=== PATIENT | male | born 1955 | race Hispanic/Latino ===

== ENCOUNTER 2022-10-11 07:14 | Emergency (ER) | payer MEDICARE ==
--- OUTSIDE RECORDS SUMMARY | 2022-10-11 07:21 | XMS REPORT | Continuity of Care Document ---
:1955 Author Organization [facility] Address [address] [place] [address] [address]. Lopez [address] [place] [address] Care Team Providers Name Role Phone Armando_Rinku Attending Clinician Unavailable Christie Roberts Attending Clinician Sade Admitting Clinician Unavailable Payers Payer Name Policy Type Policy Number Effective Date Expiration Date S bobby [facility] 2021 (MEDICARE 00:00:00 REPLACEMENT HMO) Problems This patient has no known problems. Allergies, Adverse Reactions, Alerts This patient has no known allergies or adverse reactions. Medications This patient has no known medications. Procedures This patient has no known procedures. Encounters Start End Encounter Admission Attending Care Care Encounter Source Date/Time Date/Time Type Type Clinicians Facility Department ID 2021-11-16 Outpatient [facility] [id number] Common 12:17:33 [id number] [facility] 2022-10-11 2022-10-11 [place] [facility] [id number] [facility] 00:00:00 00:00:00 [id number] [facility] 2022-07-11 2022-07-11 [place] Soriano [id number] [facility] [id number] Devoted 18:00:00 19:30:00 Armando [id number] [facility] [id number] 2022-05-05 2022-05-05 [place] [facility] [place] [id number] [facility]oted 03:22:00 03:22:00 [id number] [facility] 2021-10-26 2021-10-26 [facility] [id number] Devoted 12:00:00 12:00:00 [id number] [facility] Results This patient has no known results.
[2022-10-11] MEDS ORDERED: AMLODIPINE 5 MG TAB ONE (08:11)
[2022-10-11 08:18] LABS: Absolute Lymphocytes (CBC) 3.4 K/uL (0.7-4.9); Hematocrit 34.6 % (39.6-49.0); Lymphocytes % 29.8 % (15.3-44.8); MCV 90.4 fL (80-100); MPV 10.1 fL (7.6-11.3); RBC Red Blood Cell Count 3.83 M/uL (4.33-5.43)
[2022-10-11 08:34] LABS: Albumin 3.7 g/dL (3.4-5.0); Bilirubin Total 0.3 mg/dL (0.2-1.0); Potassium 3.5 mmol/L (3.5-5.1); Protein, Total 7.2 g/dL (6.4-8.2); Troponin High Sensitivity 24.1 pg/mL (<58.9)
--- NOTE | 2022-10-11 08:46 | ER ---
Nurse's Notes [facility] Name: Santosh Mckenna Age: 67 yrs Sex: Male : 1955 Arrival Date: 10/11/2022 Time: 07:21 Bed 16 Private MD: Rome Hollingsworth Diagnosis: Essential (primary) hypertension Presentation: 10/11 07:31 Chief complaint: Patient states: BP has been high for one week, Dr. Hollingsworth added losartan iw 50 mg daily and it's still high, was told to come to ER if his BP did not improve, has been 190-200 systolic X 1 week, normally takes metoprolol 25 daily. Coronavirus screen: At this time, the client does not indicate any symptoms associated with coronavirus-19. Ebola Screen: Patient negative for fever greater than or equal to 101.5 degrees Fahrenheit, and additional compatible Ebola Virus Disease symptoms Patient denies exposure to infectious person. Patient denies travel to an Ebola-affected area in the 21 days before illness onset. No symptoms or risks identified at this time. Initial Sepsis Screen: Does the patient meet any 2 criteria? No. Patient's initial sepsis screen is negative. Does the patient have a suspected source of infection? No. Patient's initial sepsis screen is negative. Risk Assessment: Do you want to hurt yourself or someone else? Patient reports no desire to harm self or others. Onset of symptoms was October 11, 2022. 07:31 Method Of Arrival: Ambulatory iw 07:31 Acuity: PRADEEP 3 iw Triage Assessment: 07:29 General: Appears in no apparent distress. comfortable, Behavior is calm, cooperative, bp appropriate for age. Pain: Complains of pain in head. EENT: No deficits noted. Neuro: No deficits noted. Cardiovascular: Rhythm is sinus rhythm. Cardiovascular: Denies chest pain. Respiratory: No deficits noted. Denies shortness of breath. GI: No signs and/or symptoms were reported involving the gastrointestinal system. : No signs and/or symptoms were reported regarding the genitourinary system. Derm: No deficits noted. Musculoskeletal: No deficits noted. Historical: - Allergies: 07:33 No Known Allergies; iw - Home Meds: 07:33 metformin 500 mg Oral tab 1 tab 2 times per day [Active]; tamsulosin 0.4 mg oral cap 1 iw cap once daily [Active]; atorvastatin 40 mg oral tab 1 tab once daily [Active]; glimepiride 2 mg Oral tab 1 tab once daily [Active]; metoprolol tartrate 25 mg Oral tab 1 tab once daily [Active]; losartan 50 mg oral tab 1 tab once daily [Active]; - PMHx: 07:33 Diabetes mellitus; Hypertensive disorder; iw - PSHx: 07:33 spinal fusion; iw - Immunization history:: Adult Immunizations. - Social history:: Smoking status: Patient reports the use of cigarette tobacco products, denies chronic smoking, but will smoke occasionally. - Family history:: not pertinent. Screenin:30 [facility] ED Fall Risk Assessment (Adult) History of falling in the last 3 months, bp including since admission No falls in past 3 months (0 pts). Humpty Dumpty Scale Fall Assessment Tool (age< 18yrs) Age 13 years and above (1 pt). Abuse screen: Denies threats or abuse. Denies injuries from another. Nutritional screening: No deficits noted. Tuberculosis screening: No symptoms or risk factors identified. Fall Risk No fall in past 12 months (0 pts). Assessment: 07:33 General: SEE TRIAGE NOTE. bp 08:12 Reassessment: No changes from previously documented assessment. Patient and/or family bp updated on plan of care and expected duration. Pain level reassessed. 09:10 Reassessment: PT DC HOME AMBULATORY. bp Vital Signs: 07:33 BP 197 / 103; Pulse 57; Resp 16; Temp 97.9; Pulse Ox 98% on R/A; Weight 113.4 kg; bp Height 5 ft. 10 in. (177.80 cm); 07:37 BP 190 / 86; Pulse 56; Resp 16; Pulse Ox 98% ; bp 08:00 BP 178 / 82; Pulse 61; Resp 16; Pulse Ox 98% ; bp 09:00 BP 180 / 88; Pulse 58; Resp 16; Pulse Ox 99% ; bp 07:33 Body Mass Index 35.87 (113.40 kg, 177.80 cm) bp ED Course: 07:21 Patient arrived in ED. rg4 07:21 Rome Hollingsworth MD is Private Physician. rg4 07:24 Asher Otero, NELLI is Primary Nurse. bp 07:24 Adriel Anderson MD is Attending Physician. rt 07:29 Arm band placed on. bp 07:30 Patient has correct armband on for positive identification. Bed in low position. Call bp light in reach. Side rails up X2. Adult w/ patient. 07:33 Triage completed. iw 08:05 Inserted saline lock: 20 gauge in left forearm, using aseptic technique. Blood bp collected. 08:45 Rome Hollingsworth MD is Referral Physician. rt 09:11 No provider procedures requiring assistance completed. IV discontinued, intact, bp bleeding controlled, No redness/swelling at site. Pressure dressing applied. Administered Medications: 08:00 Drug: amLODIPine 5 mg Route: PO; bp 09:11 Follow up: Response: No adverse reaction; Marked relief of symptoms bp Medication: 07:33 VIS not applicable for this client. bp Outcome: 08:45 Discharge ordered by MD. rt 09:11 Discharged to home ambulatory, with family. bp 09:11 Condition: stable 09:11 Discharge instructions given to patient, Instructed on discharge instructions, follow up and referral plans. medication usage, Demonstrated understanding of instructions, follow-up care, medications, Prescriptions given X 1. 09:11 Patient left the ED. bp Signatures: Alina Roberts, RN RN iw France Owens rg4 Ashre Otero RN RN bp Adriel Anderson MD MD rt Corrections: (The following items were deleted from the chart) 08:12 07:33 BP 197 / 103; Resp 16bpm; Pulse Ox 98% RA; 113.4 kg; Height 5 ft. 10 in.; BMI: bp 35.8; iw
--- NOTE | 2022-10-11 08:46 | EDPHYS ---
Physician Documentation [facility] Name: Santosh Mckenna Age: 67 yrs Sex: Male : 1955 Arrival Date: 10/11/2022 Time: 07:21 Bed 16 Private MD: Rome Hollingsworth ED Physician Adriel Anderson HPI: 10/11 07:44 This 67 yrs old Male presents to ER via Ambulatory with complaints of High rt Blood Pressure. 07:44 Onset: The symptoms/episode began/occurred yesterday. Modifying factors:. Associated rt signs and symptoms: Pertinent positives: headache, Pertinent negatives: chest pain, dizziness, dyspnea, nausea. Severity of symptoms: At its worst the blood pressure was moderate. Patient presents to the ED with reported hypertension. The patient recently had his blood pressure medication changed from losartan 25 mg twice a day to 50 mg twice a day. He states that the blood pressure was hovering at about 200 yesterday. Was told to come to the ED for further evaluation. The patient reports a mild left-sided headache, nonradiating. Denies other acute complaints at this time, symptoms are moderate severity, no other aggravating or alleviating factors.. Historical: - Allergies: 07:33 No Known Allergies; iw - Home Meds: 07:33 metformin 500 mg Oral tab 1 tab 2 times per day [Active]; tamsulosin 0.4 mg oral cap 1 iw cap once daily [Active]; atorvastatin 40 mg oral tab 1 tab once daily [Active]; glimepiride 2 mg Oral tab 1 tab once daily [Active]; metoprolol tartrate 25 mg Oral tab 1 tab once daily [Active]; losartan 50 mg oral tab 1 tab once daily [Active]; - PMHx: 07:33 Diabetes mellitus; Hypertensive disorder; iw - PSHx: 07:33 spinal fusion; iw - Immunization history:: Adult Immunizations. - Social history:: Smoking status: Patient reports the use of cigarette tobacco products, denies chronic smoking, but will smoke occasionally. - Family history:: not pertinent. ROS: 07:44 Constitutional: Negative for fever, chills, and weight loss, Eyes: Negative for injury, rt pain, redness, and discharge, ENT: Negative for injury, pain, and discharge, Neck: Negative for injury, pain, and swelling, Cardiovascular: Negative for chest pain, palpitations, and edema, Respiratory: Negative for shortness of breath, cough, wheezing, and pleuritic chest pain, Abdomen/GI: Negative for abdominal pain, nausea, vomiting, diarrhea, and constipation, Back: Negative for injury and pain, MS/Extremity: Negative for injury and deformity, Skin: Negative for injury, rash, and discoloration, Psych: Negative for depression, anxiety, suicide ideation, homicidal ideation, and hallucinations. 07:44 Neuro: Positive for headache, Negative for dizziness. Exam: 07:44 Constitutional: This is a well developed, well nourished patient who is awake, alert, rt and in no acute distress. Head/Face: Normocephalic, atraumatic. Eyes: Pupils equal round and reactive to light, extra-ocular motions intact. Lids and lashes normal. Conjunctiva and sclera are non-icteric and not injected. Cornea within normal limits. Periorbital areas with no swelling, redness, or edema. ENT: Nares patent. No nasal discharge, no septal abnormalities noted. Tympanic membranes are normal and external auditory canals are clear. Oropharynx with no redness, swelling, or masses, exudates, or evidence of obstruction, uvula midline. Mucous membranes moist. Neck: Trachea midline, no thyromegaly or masses palpated, and no cervical lymphadenopathy. Supple, full range of motion without nuchal rigidity, or vertebral point tenderness. No Meningismus. Chest/axilla: Normal chest wall appearance and motion. Nontender with no deformity. No lesions are appreciated. Cardiovascular: Regular rate and rhythm with a normal S1 and S2. No gallops, murmurs, or rubs. Normal PMI, no JVD. No pulse deficits. Respiratory: Lungs have equal breath sounds bilaterally, clear to auscultation and percussion. No rales, rhonchi or wheezes noted. No increased work of breathing, no retractions or nasal flaring. Abdomen/GI: Soft, non-tender, with normal bowel sounds. No distension or tympany. No guarding or rebound. No evidence of tenderness throughout. Skin: Warm, dry with normal turgor. Normal color with no rashes, no lesions, and no evidence of cellulitis. MS/ Extremity: Pulses equal, no cyanosis. Neurovascular intact. Full, normal range of motion. Neuro: Awake and alert, GCS 15, oriented to person, place, time, and situation. Cranial nerves II-XII grossly intact. Motor strength 5/5 in all extremities. Sensory grossly intact. Cerebellar exam normal. Normal gait. Psych: Awake, alert, with orientation to person, place and time. Behavior, mood, and affect are within normal limits. 08:17 ECG was reviewed by the Attending Physician. rt Vital Signs: 07:33 BP 197 / 103; Pulse 57; Resp 16; Temp 97.9; Pulse Ox 98% on R/A; Weight 113.4 kg; bp Height 5 ft. 10 in. (177.80 cm); 07:37 BP 190 / 86; Pulse 56; Resp 16; Pulse Ox 98% ; bp 08:00 BP 178 / 82; Pulse 61; Resp 16; Pulse Ox 98% ; bp 09:00 BP 180 / 88; Pulse 58; Resp 16; Pulse Ox 99% ; bp 07:33 Body Mass Index 35.87 (113.40 kg, 177.80 cm) bp MDM: 07:38 Patient medically screened. rt 08:49 Differential diagnosis: hypertensive crisis, intracerebral hemorrhage, ACS,CHF. Data rt reviewed: vital signs, nurses notes, lab test result(s), EKG. ED course: Presents to the ED with hypertension. He has a very mild headache at this time. EKG, labs are unremarkable. Of a very low suspicion for intracranial process, therefore, CT scan is not indicated. No evidence of endorgan dysfunction. Blood pressure is improving with medications in the ED. Is stable for outpatient care, patient instructed follow-up with primary care for further management.. 10/11 07:44 Order name: CBC with Diff; Complete Time: 08:35 rt 12 07:44 Order name: Troponin High Sensitivity; Complete Time: 08:35 rt 12 07:44 Order name: EKG; Complete Time: 07:44 rt 10/11 07:44 Order name: EKG - Nurse/Tech; Complete Time: 08:12 rt 12 07:44 Order name: CMP; Complete Time: 08:35 rt EC:17 Rate is 57 beats/min. Rhythm is regular, Sinus bradycardia with No ectopy. QRS [place] is rt Normal. [place] interval is normal. QRS interval is normal. QT interval is normal. No Q waves. T waves are Normal. No ST changes noted. Interpreted by me. Administered Medications: 08:00 Drug: amLODIPine 5 mg Route: PO; bp 09:11 Follow up: Response: No adverse reaction; Marked relief of symptoms bp Disposition Summary: 10/11/22 08:45 Discharge Ordered Location: Home rt Problem: an acute exacerbation rt Symptoms: have improved rt Condition: Stable rt Diagnosis - Essential (primary) hypertension rt Followup: rt - With: Rome Hollingsworth MD - When: 10 - 14 days - Reason: Discharge Instructions: - Discharge Summary Sheet rt - Hypertension, Adult rt Forms: - Medication Reconciliation Form rt - Thank You Letter rt - Antibiotic Education rt - Prescription Opioid Use rt Prescriptions: - Norvasc 5 mg Oral Tablet - take 1 tablet by ORAL route once daily; 30 tablet; Refills: 0, Product rt Selection Permitted Signatures: Dispatcher [employer] Alina Wasserman RN RN iw Peltier, Brian, RN RN Adriel Griffin MD MD rt
[2022-10-11 09:34] VITALS: TEMP 97.9
[2022-10-11 09:38] VITALS: BP 180/88; O2SAT 99
== END 2022-10-11 09:11 | disposition home or self-care (01) ==
LOC: ER 07:14
DX: I10 Essential (primary) hypertension (principal); E11.9 Type 2 diabetes mellitus without complications; F17.210 Nicotine dependence, cigarettes, uncomplicated
CPT/HCPCS: 36415; 80053; 84484; 85025; 93005

== ENCOUNTER 2022-10-12 18:15 | Emergency (ER) | payer MEDICARE ==
--- OUTSIDE RECORDS SUMMARY | 2022-10-12 18:18 | XMS REPORT | Continuity of Care Document ---
:1955 Author Organization [facility] Address [address] [place] [address] [address]. [address] [place] [address] Care Team Providers Name Role Phone Armando_Rinku Attending Clinician Unavailable Christie Roberts Attending Clinician Sade Admitting Clinician Unavailable Payers Payer Name Policy Type Policy Number Effective Date Expiration Date S bobby [facility] 2021 (MEDICARE 00:00:00 REPLACEMENT HMO) Problems This patient has no known problems. Allergies, Adverse Reactions, Alerts This patient has no known allergies or adverse reactions. Medications This patient has no known medications. Procedures This patient has no known procedures. Encounters Start End Encounter Admission Attending Care Care Encounter Source Date/Time Date/Time Type Type Clinicians Facility Department ID 2021-11-16 Outpatient [facility] [id number] Common 12:17:[id number] [facility] 2022-10-11 2022-10-11 Outpatient Sade [facility] [id number] Devoted 00:00:00 00:00:00 [id number] Med[facility] l Group 2022-07-11 2022-07-11 [place] Soriano [id number]. [facility] [id number] Devoted 18:00:00 19:30:00 Armando [id number] [facility] [id number] 2022-05-05 2022-05-05 Outpatient [facility] [id number] Devoted 03:22:00 03:22:00 [id number] Med[facility] 2021-10-26 2021-10-26 [facility] [id number] Devoted 12:00:00 12:00:00 [id number] [facility] Results This patient has no known results.
[2022-10-12] MEDS ORDERED: ACETAMINOPHEN 500 MG TAB ONE (19:41)
--- NOTE | 2022-10-12 20:36 | RAD REPORT ---
EXAM DESCRIPTION: CT - Head Brain Wo Cont - 10/12/2022 8:21 pm CLINICAL HISTORY: headache, HTN COMPARISON: No comparisons TECHNIQUE: All CT scans are performed using dose optimization technique as appropriate and may inclu de automated exposure control or mA/KV adjustment according to patient size. FINDINGS: No intracranial hemorrhage, hydrocephalus or extra-axial fluid collection.No areas of brai n edema or evidence of midline shift. The paranasal sinuses and mastoids are clear. The calvarium is intact. IMPRESSION: No acute intracranial abnormality.
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
--- NOTE | 2022-10-12 20:46 | ER ---
Nurse's Notes [facility] Name: Santosh Mckenna Age: 67 yrs Sex: Male : 1955 Arrival Date: 10/12/2022 Time: 18:18 Bed 15 Private MD: Diagnosis: Cephalgia;Essential (primary) hypertension Presentation: 10/12 18:22 Chief complaint: Headache x 2 days. Also reports home BP 214/102. Coronavirus screen: hb At this time, the client does not indicate any symptoms associated with coronavirus-19. Ebola Screen: No symptoms or risks identified at this time. Initial Sepsis Screen: Does the patient meet any 2 criteria? No. Patient's initial sepsis screen is negative. Does the patient have a suspected source of infection? No. Patient's initial sepsis screen is negative. Risk Assessment: Do you want to hurt yourself or someone else? Patient reports no desire to harm self or others. Onset of symptoms was October 11, 2022. 18:22 Method Of Arrival: Ambulatory hb 18:22 Acuity: PRADEEP 3 hb Historical: - Allergies: 18:23 No Known Allergies; hb - PMHx: 18:23 diabetes mellitus; Hypertensive disorder; hb - PSHx: 18:23 Spinal Fusion; hb - Immunization history:: Adult Immunizations unknown. - Social history:: Smoking status: unknown. Screenin:[address] [facility] ED Fall Risk Assessment (Adult) Score/Fall Risk Level 0 - 2 = Low Risk. Abuse as6 screen: Denies threats or abuse. Denies injuries from another. Nutritional screening: No deficits noted. Tuberculosis screening: No symptoms or risk factors identified. Assessment: 19:46 General: Appears in no apparent distress. Behavior is calm, cooperative. Pain: as6 Complains of pain in head. Pain: Quality of pain is described as aching. Neuro: Reports headache. Cardiovascular: Capillary refill < 3 seconds Patient's skin is warm and dry. Respiratory: Respiratory effort is even, unlabored. Vital Signs: 18:22 BP 165 / 105; Pulse 95; Resp 16; Temp 98.4; Pulse Ox 100% on R/A; Weight 113.4 kg; hb Height 5 ft. 10 in. (177.80 cm); Pain 8/10; 20:55 BP 148 / 99; Pulse 89; Resp 17 S; Pulse Ox 99% on R/A; as6 18:22 Body Mass Index 35.87 (113.40 kg, 177.80 cm) ED Course: 18:18 Patient arrived in ED. rg4 18:23 Triage completed. hb 18:24 Arm band placed on. hb 19:06 Yanira Garcia MD is Attending Physician. sd2 19:19 Eddie Bourne, RN is Primary Nurse. as6 19:47 Bed in low position. Call light in reach. pt states he is more comfortable sitting in as6 chair. 20:23 CT Head Brain wo Cont In Process Unspecified. EDMS 20:54 No provider procedures requiring assistance completed. Patient did not have IV access as6 during this emergency room visit. Administered Medications: 19:46 Drug: Tylenol 1000 mg Route: PO; as6 20:55 Follow up: Response: No adverse reaction as6 Medication: 19:48 VIS not applicable for this client. as6 Outcome: 20:45 Discharge ordered by . sd2 20:54 Discharged to home ambulatory, with significant other. as6 20:54 Condition: stable 20:54 Discharge instructions given to patient, significant other, Instructed on discharge instructions, follow up and referral plans. Demonstrated understanding of instructions, follow-up care. 20:55 Patient left the ED. as6 Signatures: Dispatcher [employer] EDMS Regina Moyer, NELLI AIKEN France Owens rg4 Eddie Bourne, NELLI RN as6 Yanira Garcia MD MD sd2
[2022-10-12 21:01] VITALS: TEMP 98.4
[2022-10-12 21:02] VITALS: BP 148/99; O2SAT 99
== END 2022-10-12 20:55 | disposition home or self-care (01) ==
LOC: ER 18:15
DX: R51.9 Headache, unspecified (principal); I10 Essential (primary) hypertension; E11.9 Type 2 diabetes mellitus without complications
CPT/HCPCS: 70450; 99283

== ENCOUNTER 2022-11-15 06:53 | Day surgery (SDC) | payer MEDICARE ==
[2022-11-15] MEDS ORDERED: NA CHLORIDE 0.9% 1,000 ML ONE (07:15)
[2022-11-15] MEDS ORDERED: propofoL 200 MG/20 ML VIAL IV ONE (08:02)
[2022-11-15] MEDS ORDERED: LIDOCAINE 1% MPF 5 ML VIAL ONE (08:02)
--- NOTE | 2022-11-15 08:35 | ENDO RPT ---
[address], [address] COLONOSCOPY PROCEDURE REPORT EXAM DATE: 11/15/2022 PATIENT NAME: Santosh Mckenna MR #: [id number] BIRTHDATE: 1955 ATTENDING: Luis Menezes DR STATUS: outpatient BODY FORMER: Vannesa Tamayo RN and Earl Padilla [facility] INDICATIONS: The patient is a 67 yr old Male here for a colonoscopy due to colon cancer screening PROCEDURE PERFORMED: Colonoscopy with biopsy - cold polypectomy MEDICATIONS: Per Anesthesia. ESTIMATED BLOOD LOSS: None CONSENT: The patient understands the risks and benefits of the procedure and understands that these risks include, but are not limited to: sedation, allergic reaction, infection, perforation and/or bleeding. Alternative means of evaluation and treatment include, among others: physical exam, x-rays, and/or surgical intervention. The patient elects to proceed with this endoscopic procedure. DESCRIPTION OF PROCEDURE: During intra-op preparation period all mechanical medical equipment was checked for proper function. Hand hygiene and appropriate measures for infection prevention was taken. Procedure, possible complications, alternatives including, but not limited to possibility of bleeding, perforation, tear, infection, sepsis, need for surgery, need for blood transfusion, were explained to the patient. After the risks, benefits and alternatives of the procedure were thoroughly explained, Informed consent was verified, confirmed and timeout was successfully executed by the treatment team. The patient was placed in the left lateral position. A digital rectal exam was performed and revealed internal hemorrhoids. After appropriate level of anesthesia, the scope was passed. The EC-[id number] ([id number]) endoscope was introduced through the anus and advanced to the cecum, which was identified by both the appendix and ileocecal valve. The quality of the prep was fair. The instrument was then slowly withdrawn as the colon was fully examined. Scope withdrawal time was 10 minutes. COLON FINDINGS: A smooth sessile polyp ranging between 3-5mm in size was found at the splenic flexure. A polypectomy was performed with cold forceps. The resection was complete, the polyp tissue was completely retrieved and sent to histology. Small internal hemorrhoids were found. The colon mucosa was otherwise normal. Retroflexed views revealed no abnormalities. The scope was then completely withdrawn from the patient and the procedure terminated. ADVERSE EVENTS: There were no complications. IMPRESSIONS: 1. Sessile polyp ranging between 3-5mm in size was found at the splenic flexure; polypectomy was performed with cold forceps 2. Small internal hemorrhoids 3. The colon mucosa was otherwise normal RECOMMENDATIONS: 1. avoid NSAIDS for 2 weeks 2. await biopsy results 3. fiber rich diet 4. follow-up: office 2 week(s) 5. Monitor for any evidence of rectal bleeding. 6. hemorrhoidal hygiene 7. yearly hemoquant 8. yearly hemoccult starting in 4 years RECALL: for Colonoscopy, pending biopsy results. Luis Menezes DR eSigned: Luis Menezes DR 11/15/2022 8:35 AM cc: CPT CODES: ICD9 CODES: PATIENT NAME: Santosh Mckenna MR#: [id number]
[2022-11-15 09:47] VITALS: TEMP 97.4
[2022-11-15 09:49] VITALS: BP 115/66
[2022-11-15 09:50] VITALS: O2SAT 100
[2022-11-15] MEDS ORDERED: HYDROCODONE/APAP 10/325 TAB ONE (10:07)
== END 2022-11-15 09:18 | disposition home or self-care (01) ==
LOC: OR 06:53
PROVIDERS: ATTEND Surgery
PROC: 0DBL8ZX Excision of Transverse Colon, Via Natural or Artificial Opening Endoscopic, Diagnostic (ICD-10-PCS; principal; 2022-11-15 08:00)
DX: Z12.11 Encounter for screening for malignant neoplasm of colon (principal); D12.3 Benign neoplasm of transverse colon; K64.8 Other hemorrhoids
CPT/HCPCS: 82947; 88305; 45380; J2704; J2001; J7030

== ENCOUNTER 2024-03-14 12:57 | Emergency (ER) | payer MEDICARE ==
--- OUTSIDE RECORDS SUMMARY | 2024-03-14 13:00 | XMS REPORT | Continuity of Care Document ---
Author Name Unknown Address [address] [facility] [address] [place], [place] [address] [place] [address] th[address] [facility] [address] [place] [address] [address] Prov[address] Care Ct Scan Technologist Name Role Phone Flora Medina Attending Clinician [phone] Deepa hWitley Attending Clinician [phone] Shaina Attending Clinician Unavailable Christie Roberts Attending Clinician Sade Attending Clinician Unavailable Shaina Admitting Clinician Unavailable Sade Admitting Clinician Unavailable Payers Payer Name Policy Type Policy Number Effective Date Expirati on Date Source [facility] (MEDICARE REPLACEMENT O) UR 2021 00:00:00 Problems Condition Name Condition Details Condition Category Status Onset Date Resolution Date Last Treatment Date Treating Clinician Comments Source [id number] Nocturia Problem Commo n [facility] [id number] 101 Benign prostatic hyperplasi a with lower urinary tract symptoms Problem [facility] [id number] Primary osteoarthr itis of left knee Problem [facility] [id number] OAB (overactiv e bladder) Problem [facility] Social History Social Habit Start Date Stop Date Quantity Comments Source History of Tobacco Use [facility] Sex Assigned At [facility] Smoking Status Start Date Stop Date Source Never Smoker [facility] Medications Ordered Medication Name Filled Medication Name Start Date Stop Date Current Medication? Ordering Clinician Indication Dosage Frequency Signature (SIG) Comments Components Source Finasteride 5 MG Finasteride 5 MG 03-03 00:00: 00 No 1{table t} QD Finasterid e 5 MG Solifenacin Succinate 5 MG Solifenacin Succinate 5 MG 03-03 00:00: 00 No 1{table t} QD Solifenaci n Succinate 5 MG Metoprolol Succinate 25 MG Metoprolol Succinate 25 MG No 1{capsu le} QD Metoprolol Succinate 25 MG Glimepiride 4 MG Glimepiride 4 MG No 1{table t_with_ breakfa st_or_t he_firs t_main_ meal_of _the_da y} QD Glimepirid e 4 MG amLODIPine Besylate 10 MG amLODIPine Besylate 10 MG No 1{table t} QD amLODIPine Besylate 10 MG Jardiance 25 MG Jardiance 25 MG No 1{table t} QD Jardiance 25 MG metFORMIN HCl 500 MG metFORMIN HCl 500 MG No 1{table t_with_ a_meal} QD metFORMIN HCl 500 MG Tamsulosin HCl 0.4 MG Tamsulosin HCl 0.4 MG No 1{capsu le} QD Tamsulosin HCl 0.4 MG Losartan Potassium 100 MG Losartan Potassium 100 MG No 1{table t} QD Losartan Potassium 100 MG Vital Signs Vital Name Observation Time Observation Value Comments S ource height 2024-03-03 15:45:00 70 [in_i] Commo n [facility] weight 2024-03-03 15:45:00 252.2 [lb_av] Co mmon [facility] temperature 2024-03-03 15:45:00 98.1 [degF] Com mon [facility] bmi 2024-03-03 15:45:00 36.18 kg/m2 Comm on [facility] oximetry 2024-03-03 15:45:00 93 % Commo n [facility] blood pressure systolic 2024-03-03 15:45:00 155 mm[Hg] Common Spiri [facility] blood pressure diastolic 2024-03-03 15:45:00 74 mm[Hg] Common Spiri t - [facility] Procedures Procedure Date / Time Performed Performing Clinicia n Source PVR 2024-03-03 00:00:00 Common S pirit [facility] Encounters Start Date/Time End Date/Time Encounter Type Admission Type Attending [facility] Care Facility Care Department Encounter ID Source 2024-03-04 15:17:00 Outpatient [facility] [id number] [facility] 2024-03-03 15:11:00 [facility] [id number] [facility] 2024-01-10 16:57:00 Outpatient [facility] [id number] [facility] 2021-11-16 12:17:33 [facility] [id number] [facility] 2024-03-03 00:00:00 2024-03-03 00:00:00 OFFICE VISIT NEW PT LEVEL 4 [facility] [id number] [facility] 2024-01-09 14:00:00 2024-01-09 15:00:00 Annual D2Me Flora Medina [id number] [facility] 2023-04-30 19:30:00 2023-04-30 20:30:00 CAV Deepa Whitley [id number]. [id number] GGY [facility] 2023-04-19 00:00:00 2023-04-19 00:00:00 Outpatient Canales_M [facility] [id number] [facility] 2022-10-18 22:00:00 2022-10-18 23:00:00 CAV Revisit: Gap Closure & Clinical Check-in Christie Armando [id number] [facility] 2022-10-18 00:00:00 2022-10-18 00:00:00 Outpatient Williams_V [facility] [id number] [facility] 2022-10-11 00:00:00 2022-10-11 00:00:00 Outpatient Williams_V [facility] [id number] [facility] 2022-07-11 18:00:00 2022-07-11 19:30:00 CAV Christie Roberts [id number]. [id number] [facility] 2022-05-05 03:22:00 2022-05-05 03:22:00 [facility] [id number] [facility] 2021-10-26 12:00:00 2021-10-26 12:00:00 [facility] [id number] [facility]
[2024-03-14 14:10] LABS: Sqamous Epithelial <5 /HPF (None Seen); Urine Bacteria None Seen /HPF (<20); Urine Bilirubin NEGATIVE (Negative); Urine Blood Negative (Negative); Urine Clarity Clear (Clear); Urine Color Colorless (Yellow); Urine Culture Reflex Order NOT NEEDED; Urine Glucose 4+ (Over) (Negative); Urine Ketones NEGATIVE (Negative); Urine Micro Reflex YN NO BILL MICROSCOPIC; Urine Mucus Slight /HPF (None Seen); Urine Nitrite NEGATIVE (Negative); Urine Protein NEGATIVE (Negative); Urine RBC <5 /HPF (None Seen); Urine Urobilinogen Normal (Normal); Urine WBC <5 /HPF (<5)
--- NOTE | 2024-03-14 14:34 | EDPHYS ---
Physician Documentation [facility] Name: Santosh Mckenna Age: 68 yrs Sex: Male : 1955 Arrival Date: 03/14/2024 Time: 12:57 Bed 16 Private MD: ED Physician Ezra Bradford HPI: 03/14 13:20 This 68 yrs old Male presents to ER via Ambulatory with complaints of Urinary cp Problem. 13:20 The patient presents with urinary symptoms, retention, voiding small amounts. Onset: cp The symptoms/episode began/occurred yesterday, and became worse this morning. Associated signs and symptoms: Pertinent positives: lower abdomen pressure, Pertinent negatives: constipation, diarrhea, dysuria, fever, vomiting, worse back pain. Severity of symptoms: in the emergency department the symptoms are unchanged, despite home interventions. Historical: - Allergies: 13:07 No Known Allergies; ko1 - PMHx: 13:07 diabetes mellitus; Hypertensive disorder; ko1 - PSHx: 13:07 Spinal Fusion; ko1 - Immunization history:: Adult Immunizations up to date. - Infectious Disease History:: Denies. - Social history:: Smoking status: Patient denies any tobacco usage or history of. ROS: 13:25 : Positive for small amounts, difficulty urinating, Negative for burning with cp urination, penile discharge, testicular pain 13:25 Eyes: Negative for injury, pain, redness, and discharge, cp 13:25 Constitutional: Negative for body aches, chills, fever, poor PO intake, 13:25 Respiratory: Negative for cough, shortness of breath, wheezing, 13:25 Abdomen/GI: Positive for of the right lower quadrant and left lower quadrant, abdominal pressure, Negative for nausea, vomiting, diarrhea, constipation, 13:25 Back: Negative for radiated pain, 13:25 Neuro: Negative for altered mental status, dizziness, headache, weakness, 13:25 All other systems are negative, Exam: 13:30 Constitutional: The patient appears in no acute distress, alert, awake, non-toxic, well cp developed, well nourished, 13:30 Head/Face: Normocephalic, atraumatic. cp 13:30 Eyes: Periorbital structures: appear normal, Conjunctiva: normal, no exudate, no injection, Sclera: no appreciated abnormality, Lids and lashes: appear normal, bilaterally, 13:30 ENT: External ear(s): are unremarkable, Nose: is normal, Mouth: Lips: moist, Oral mucosa: pink and intact, moist, Posterior pharynx: is normal, airway is patent, no erythema, no exudate, 13:30 Chest/axilla: Inspection: normal, 13:30 Cardiovascular: Rate: normal, 13:30 Respiratory: the patient does not display signs of respiratory distress, Respirations: normal, no use of accessory muscles, no retractions, labored breathing, is not present, Breath sounds: are clear throughout, no decreased breath sounds, no stridor, no wheezing, 13:30 Abdomen/GI: Inspection: abdomen appears normal, Bowel sounds: active, all quadrants, Palpation: soft, in all quadrants, mild abdominal tenderness, in the right lower quadrant and left lower quadrant, rebound tenderness, is not appreciated, involuntary guarding, is not appreciated, 13:30 Back: CVA tenderness, is absent, 13:30 Neuro: Orientation: to person, place \T\ time. Mentation: is normal, Motor: moves all fours, strength is normal, Sensation: is normal, Vital Signs: 13:05 BP 151 / 76; Pulse 67; Resp 16; Temp 98.2(O); Pulse Ox 98% on R/A; ko1 MDM: 13:14 Patient medically screened. cp 13:30 Differential diagnosis: nonspecific abdominal pain, UTI, urinary retention, cp prostatitis, urethritis. 14:33 Data reviewed: vital signs, nurses notes, lab test result(s), and as a result, I will cp discharge patient. 14:33 Care significantly affected by the following chronic conditions: Diabetes, cp Hypertension. Counseling: I had a detailed discussion with the patient and/or guardian regarding the historical points, exam findings, and any diagnostic results supporting the discharge/admit diagnosis, lab results, the need for outpatient follow up, for definitive care, a urologist, to return to the emergency department if symptoms worsen or persist or if there are any questions or concerns that arise at home. Response to treatment: the patient's symptoms have markedly improved after treatment, and as a result, I will discharge patient. 03/14 13:20 Order name: Urinalysis W/Microscopic; Complete Time: 14:23 cp 03/14 14:23 Interpretation: Reviewed. cp 03/14 13:20 Order name: Bladder Scanner; Complete Time: 14:07 cp 03/14 13:20 Order name: Ruiz; Complete Time: 14:16 cp 03/14 14:33 Order name: Leg Bag; Complete Time: 15:07 cp Administered Medications: No medications were administered Disposition: 17:06 I was immediately available on-site in the Emergency Department for consultation in the ms3 care of the patient. Disposition Summary: 03/14/24 14:34 Discharge Ordered Notes: Location: Home cp Problem: new cp Symptoms: have improved cp Condition: Stable cp Diagnosis - Retention of urine, unspecified cp Followup: cp - With: Keenan Reyna MD - When: 1 week - Reason: Recheck today's complaints Discharge Instructions: - Discharge Summary Sheet cp - Acute Urinary Retention, Male cp Forms: - Medication Reconciliation Form cp - Antibiotic Education cp - Prescription Opioid Use cp - Patient Portal Instructions cp - Leadership Thank You Letter cp Prescriptions: - cefpodoxime 200 mg Oral tablet - take 1 tablet ORAL route every 12 hours with food; 14 tablet; Refills: 0, cp Product Selection Permitted Signatures: Dispatcher [employer] EDMS Zoltan Joseph PA PA cp Sims, Marcus, DO DO ms3 Crystal Barrios, RN RN ko1
--- NOTE | 2024-03-14 14:34 | ER ---
Nurse's Notes [facility] Name: Santosh Mckenna Age: 68 yrs Sex: Male : 1955 Arrival Date: 03/14/2024 Time: 12:57 Bed 16 Private MD: Diagnosis: Retention of urine, unspecified Presentation: 03/14 13:05 Chief complaint: Patient states: feels like im not emptying my bladder all the way. I ko1 pee a little bit every 10 minutes or so, have a hx of prostate problems. Coronavirus screen: At this time, the client does not indicate any symptoms associated with coronavirus-19. Ebola Screen: No symptoms or risks identified at this time. Initial Sepsis Screen: Does the patient meet any 2 criteria? No. Patient's initial sepsis screen is negative. Does the patient have a suspected source of infection? No. Patient's initial sepsis screen is negative. Risk Assessment: Do you want to hurt yourself or someone else? Patient reports no desire to harm self or others. Onset of symptoms was March 14, 2024. 13:05 Method Of Arrival: Ambulatory ko1 13:05 Acuity: PRADEEP 3 ko1 Triage Assessment: 13:07 General: Appears in no apparent distress. Behavior is calm, cooperative, appropriate ko1 for age. Pain: Complains of pain in back. 13:07 : Reports urinary frequency, pressure. ko1 Historical: - Allergies: 13:07 No Known Allergies; ko1 - PMHx: 13:07 diabetes mellitus; Hypertensive disorder; ko1 - PSHx: 13:07 Spinal Fusion; ko1 - Immunization history:: Adult Immunizations up to date. - Infectious Disease History:: Denies. - Social history:: Smoking status: Patient denies any tobacco usage or history of. Screenin:08 [facility] ED Fall Risk Assessment (Adult) History of falling in the last 3 months, kc6 including since admission No falls in past 3 months (0 pts) Confusion or Disorientation No (0 pts) Intoxicated or Sedated No (0 pts) Impaired Gait No (0 pts) Mobility Assist Device Used No (0 pt) Altered Elimination No (0 pt) Score/Fall Risk Level 0 - 2 = Low Risk. Abuse screen: Denies threats or abuse. Denies injuries from another. Nutritional screening: No deficits noted. Tuberculosis screening: No symptoms or risk factors identified. Assessment: 14:08 General: Appears in no apparent distress. comfortable, well groomed, well developed, kc6 Behavior is calm, cooperative, appropriate for age. Pain: Complains of pain in suprapubic area and back Quality of pain is described as crampy. Neuro: Level of Consciousness is awake, alert, obeys commands, Oriented to person, place, time, situation, Appropriate for age. Cardiovascular: Capillary refill < 3 seconds. Respiratory: Airway is patent Trachea midline Respiratory effort is even, unlabored, Respiratory pattern is regular, symmetrical. GI: No signs and/or symptoms were reported involving the gastrointestinal system. : Urine is clear, Reports inability to void. EENT: No signs and/or symptoms were reported regarding the EENT system. Derm: No signs and/or symptoms reported regarding the dermatologic system. Skin is intact, is healthy with good turgor, Skin is pink, warm \T\ dry. Musculoskeletal: No signs and/or symptoms reported regarding the musculoskeletal system. Circulation, motion, and sensation intact. Capillary refill < 3 seconds, Range of motion: intact in all extremities. 15:08 Reassessment: Patient appears in no apparent distress at this time. No changes from kc6 previously documented assessment. Patient and/or family updated on plan of care and expected duration. Pain level reassessed. Patient is alert, oriented x 3, equal unlabored respirations, skin warm/dry/pink. Patient states feeling better. Patient states symptoms have improved. Vital Signs: 13:05 BP 151 / 76; Pulse 67; Resp 16; Temp 98.2(O); Pulse Ox 98% on R/A; ko1 ED Course: 13:02 Patient arrived in ED. mg5 13:07 Triage completed. ko1 13:07 Arm band placed on right wrist. Patient placed in an exam room, on a stretcher, on ko1 pulse oximetry, Patient notified of wait time. 13:08 Zoltan Joseph PA is PHCP. cp 13:09 Ezra Bradford DO is Attending Physician. cp 13:42 Caroline Souza, NELLI is Primary Nurse. kc6 14:07 Bladder scan completed. 480mL. kc6 14:08 Patient has correct armband on for positive identification. Bed in low position. Call kc6 light in reach. Side rails up X 1. Adult w/ patient. Client placed on continuous cardiac and pulse oximetry monitoring. NIBP monitoring applied. 14:15 Ruiz cath inserted, using sterile technique, 16 Fr., by me, balloon inflated, Patient jg11 tolerated well. 14:33 Keenan Reyna MD is Referral Physician. cp 15:08 No provider procedures requiring assistance completed. Patient did not have IV access kc6 during this emergency room visit. Administered Medications: No medications were administered Medication: 15:09 VIS not applicable for this client. kc6 Output: 15:08 Urine: 600ml (Ruiz); Total: 600ml. kc6 Outcome: 14:34 Discharge ordered by MD. cp 15:09 Discharged to home ambulatory, with significant other, kc6 15:09 Condition: improved 15:09 Discharge instructions given to patient, significant other, Instructed on discharge instructions, follow up and referral plans. medication usage, Demonstrated understanding of instructions, follow-up care, medications, Prescriptions given X 1, 15:09 Patient left the ED. kc6 Signatures: Zoltan Joseph PA PA cp Caroline Souza RN RN kc6 Crystal Barrios RN RN ko1 Anais Brand mg5 Robert Varela jg11
[2024-03-14 15:47] VITALS: BP 151/76; TEMP 98.2; O2SAT 98
== END 2024-03-14 15:09 | disposition home or self-care (01) ==
LOC: ER 12:57
DX: R33.9 Retention of urine, unspecified (principal); E11.9 Type 2 diabetes mellitus without complications; I10 Essential (primary) hypertension
CPT/HCPCS: 51702; 81001; 99284